=== PATIENT | female | born 1995 | race Two or more races ===

== ENCOUNTER 2024-03-14 11:47 | Emergency (ER) | payer OTHER ==
[~2024-03-14] VITALS: Ht 162.6 cm; Wt 43.1 kg
[2024-03-14] MEDS ORDERED: AMOX/CLAVULANATE 875 MG TABLET ONE (12:12)
[2024-03-14] MEDS ORDERED: AMOX-430 PO (12:16)
[2024-03-14] MEDS: AMOX/CLAVULANATE 875 MG TABLET PO ONE (12:25)
[2024-03-14 12:40] VITALS: BP 112/64; TEMP 98.2
== END 2024-03-14 12:41 | disposition home or self-care (01) ==
LOC: ER 11:53
DX: S81.851A Open bite, right lower leg, initial encounter (principal); J45.909 Unspecified asthma, uncomplicated; W54.0XXA Bitten by dog, initial encounter; Y93.89 Activity, other specified; Y92.89 Other specified places as the place of occurrence of the external cause; Y99.8 Other external cause status